=== PATIENT | male | born 1990 | race Caucasian/White ===

== ENCOUNTER 2017-01-16 15:20 | Emergency (ER) | payer OTHER | END 2017-01-16 16:21 | disposition home or self-care (01) | LOC: ER 15:20 | DX: S93.402A Sprain of unspecified ligament of left ankle, initial encounter (principal); F31.9 Bipolar disorder, unspecified; F17.210 Nicotine dependence, cigarettes, uncomplicated; Z79.82 Long term (current) use of aspirin; X58.XXXA Exposure to other specified factors, initial encounter ==

== ENCOUNTER 2017-01-18 00:18 | Emergency (ER) | payer OTHER | END 2017-01-18 01:40 | disposition short-term general hospital (02) | LOC: ER 00:18 | DX: S90.32XA Contusion of left foot, initial encounter (principal); F31.9 Bipolar disorder, unspecified; F17.210 Nicotine dependence, cigarettes, uncomplicated; Z79.899 Other long term (current) drug therapy; Z79.82 Long term (current) use of aspirin; W19.XXXA Unspecified fall, initial encounter ==

== ENCOUNTER 2017-03-11 16:24 | Emergency (ER) | payer OTHER | END 2017-03-11 17:52 | disposition home or self-care (01) | LOC: ER 16:24 | DX: M94.0 Chondrocostal junction syndrome [Tietze] (principal); R06.02 Shortness of breath; R11.0 Nausea; F31.9 Bipolar disorder, unspecified; F17.210 Nicotine dependence, cigarettes, uncomplicated; Z79.82 Long term (current) use of aspirin; Z79.899 Other long term (current) drug therapy | CPT/HCPCS: 36415 ==